=== PATIENT | male | born 1985 | race Caucasian/White ===

== ENCOUNTER → 2019-08-13 | Outpatient (CLI) | payer OTHER | LOC: HYPER 11:49 | PROVIDERS: ATTEND Emergency Medicine | DX: L97.822 Non-pressure chronic ulcer of other part of left lower leg with fat layer exposed (principal); L02.416 Cutaneous abscess of left lower limb; E66.01 Morbid (severe) obesity due to excess calories; R60.0 Localized edema; G47.30 Sleep apnea, unspecified; I87.2 Venous insufficiency (chronic) (peripheral); Z68.44 Body mass index [BMI] 60.0-69.9, adult ==

== ENCOUNTER → 2019-09-03 | Outpatient (CLI) | payer OTHER | LOC: HYPER 09:54 | PROVIDERS: ATTEND Emergency Medicine | DX: L97.822 Non-pressure chronic ulcer of other part of left lower leg with fat layer exposed (principal); L02.416 Cutaneous abscess of left lower limb; I87.2 Venous insufficiency (chronic) (peripheral); R60.0 Localized edema; E66.01 Morbid (severe) obesity due to excess calories; G47.30 Sleep apnea, unspecified; Z68.44 Body mass index [BMI] 60.0-69.9, adult ==

== ENCOUNTER → 2019-09-24 | Outpatient (CLI) | payer OTHER | LOC: HYPER 09-17 12:08 | PROVIDERS: ATTEND Emergency Medicine | DX: L97.822 Non-pressure chronic ulcer of other part of left lower leg with fat layer exposed (principal); L02.612 Cutaneous abscess of left foot; L02.416 Cutaneous abscess of left lower limb; I87.2 Venous insufficiency (chronic) (peripheral); R60.0 Localized edema; G47.30 Sleep apnea, unspecified; E66.01 Morbid (severe) obesity due to excess calories; Z68.43 Body mass index [BMI] 50.0-59.9, adult ==

== ENCOUNTER → 2019-10-22 | Outpatient (CLI) | payer OTHER | LOC: HYPER 11:06 | PROVIDERS: ATTEND Specialist | DX: I87.332 Chronic venous hypertension (idiopathic) with ulcer and inflammation of left lower extremity (principal); L97.822 Non-pressure chronic ulcer of other part of left lower leg with fat layer exposed; L03.116 Cellulitis of left lower limb; L02.91 Cutaneous abscess, unspecified; R60.0 Localized edema; E66.01 Morbid (severe) obesity due to excess calories; G47.30 Sleep apnea, unspecified; Z68.43 Body mass index [BMI] 50.0-59.9, adult ==

== ENCOUNTER → 2019-10-29 | Outpatient (CLI) | payer OTHER | LOC: HYPER 14:57 | PROVIDERS: ATTEND Emergency Medicine | DX: I87.332 Chronic venous hypertension (idiopathic) with ulcer and inflammation of left lower extremity (principal); L97.822 Non-pressure chronic ulcer of other part of left lower leg with fat layer exposed; L02.91 Cutaneous abscess, unspecified; L03.116 Cellulitis of left lower limb; R60.0 Localized edema; E66.01 Morbid (severe) obesity due to excess calories; G47.30 Sleep apnea, unspecified; Z68.43 Body mass index [BMI] 50.0-59.9, adult ==

== ENCOUNTER → 2019-11-05 | Outpatient (CLI) | payer OTHER | LOC: HYPER 15:01 | PROVIDERS: ATTEND Emergency Medicine | DX: I87.332 Chronic venous hypertension (idiopathic) with ulcer and inflammation of left lower extremity (principal); L97.822 Non-pressure chronic ulcer of other part of left lower leg with fat layer exposed; L02.416 Cutaneous abscess of left lower limb; L03.116 Cellulitis of left lower limb; R60.0 Localized edema; E66.01 Morbid (severe) obesity due to excess calories; G47.30 Sleep apnea, unspecified; Z68.43 Body mass index [BMI] 50.0-59.9, adult ==

== ENCOUNTER → 2019-11-12 | Outpatient (CLI) | payer OTHER | LOC: HYPER 11:18 | PROVIDERS: ATTEND Emergency Medicine | DX: I87.332 Chronic venous hypertension (idiopathic) with ulcer and inflammation of left lower extremity (principal); L97.822 Non-pressure chronic ulcer of other part of left lower leg with fat layer exposed; L02.91 Cutaneous abscess, unspecified; L03.116 Cellulitis of left lower limb; R60.0 Localized edema; E66.01 Morbid (severe) obesity due to excess calories; G47.30 Sleep apnea, unspecified; I87.2 Venous insufficiency (chronic) (peripheral); Z68.43 Body mass index [BMI] 50.0-59.9, adult ==

== ENCOUNTER → 2019-11-19 | Outpatient (CLI) | payer OTHER | LOC: HYPER 08:51 | PROVIDERS: ATTEND Emergency Medicine | DX: I87.332 Chronic venous hypertension (idiopathic) with ulcer and inflammation of left lower extremity (principal); L97.822 Non-pressure chronic ulcer of other part of left lower leg with fat layer exposed; L02.416 Cutaneous abscess of left lower limb; L03.116 Cellulitis of left lower limb; I87.2 Venous insufficiency (chronic) (peripheral); R60.0 Localized edema; G47.30 Sleep apnea, unspecified; E66.01 Morbid (severe) obesity due to excess calories; Z68.43 Body mass index [BMI] 50.0-59.9, adult ==